=== PATIENT | female | born 1985 | race Hispanic/Latino ===

== ENCOUNTER 2016-05-31 21:04 | Emergency (ER) | payer MEDICAID ==
[2016-05-31 22:45] LABS: Bilirubin,Urine NEG (Negative); Blood,Urine NEG (Negative); Ketones,Urine NEG (Negative); Leukocyte Esterase,Urine NEG (Negative); Mucus,Urine FEW /HPF; Nitrite,Urine NEG (Negative); Protein,Urine <15 mg/dL mg/dL (Negative); Urobilinogen,Urine < 2.0 mg/dL (<2.0); WBC,Urine < 1.0 /HPF (0.0-6.0)
[2016-05-31 23:04] LABS: Basophils % (Auto) 0.7 % (0.0-1.8); Hematocrit 41.8 % (30.3-42.9); Hemoglobin 13.6 gm/dl (10.1-14.3); Mean Corpuscular HGB Conc 33 % (30-34); Mean Corpuscular Hemoglobin 31 pg (28-32); Mean Corpuscular Volume 94 fl (79-97); Platelet Count 226 K/mm3 (140-440); Red Blood Count 4.45 M/mm3 (3.65-5.03); Red Cell Distribution Width 13.7 % (13.2-15.2)
[2016-05-31 23:11] LABS: Alanine Aminotransferase 17 units/L (7-56); Albumin 4.4 g/dL (3.9-5); Albumin/Globulin Ratio 1.9 %; Alkaline Phosphatase 55 units/L (35-129); Anion Gap 17 mmol/L; BUN/Creatinine Ratio 18.33; Bilirubin,Total 0.3 mg/dL (0.1-1.2); Blood Urea Nitrogen 11 mg/dL (7-17); Carbon Dioxide 24 mmol/L (22-30); Chloride 104.1 mmol/L (98-107); Glucose 123 mg/dL (65-100); Lipase 31 units/L (13-60); Potassium 3.6 mmol/L (3.6-5.0); Sodium 141 mmol/L (137-145); Total Protein 6.7 g/dL (6.3-8.2)
--- NOTE | 2016-06-01 05:31 | Emergency Department Report ---
ED Abdominal Pain HPI - General Chief Complaint: Abdominal Pain Stated Complaint: ABDOMINAL PAIN Time Seen by Provider: 06/01/16 05:25 Source: patient Mode of arrival: Ambulatory Limitations: No Limitations - History of Present Illness Initial Comments: Patient is a 22-year-old female with no past medical history presented to the ER with nausea and abdominal pain. Patient reports she is currently on penicillin and hydrocodone status post tooth extractions last week. Patient reports that she may be having adverse reaction to the hydrocodone because she' s had a penicillin before in the past. Otherwise no fevers, chills, vomiting, diarrhea, chest pain, shortness of breath, trauma, sick contacts, or travel MD Complaint: abdominal pain Location: diffuse Severity scale (0 -10): 7 - Related Data Previous Rx's Medication Instructions Recorded Last Taken Type Acetaminophen/Codeine [Tylenol #3] 1 tab PO TID PRN #14 tab 06/15/14 Unknown Rx metroNIDAZOLE [Flagyl] 500 mg PO BID #10 tablet 06/15/14 Unknown Rx Acetaminophen/Codeine [Tylenol #3] 1 tab PO Q6H PRN #15 tab 01/26/15 Unknown Rx Albuterol Sulfate [Ventolin HFA] 2 puff IH Q4H PRN #1 hfa.aer.ad 01/26/15 Unknown Rx Penicillin Vk [Veetids TAB] 500 mg PO QID #40 tablet 01/26/15 Unknown Rx Allergies Allergy/AdvReac Type Severity Reaction Status Date / Time No Known Allergies Allergy Verified 06/15/14 16:40 ED Review of Systems ROS: Stated complaint: ABDOMINAL PAIN Other details as noted in HPI Comment: All other systems reviewed and negative ED Past Medical Hx - Past Medical History Previous Medical History?: No Hx Asthma: Yes Additional medical history: History of herpes, previous bacterial vaginosis, previous gonorrhea, & Chlamydia - Surgical History Additional Surgical History: tubal ligation - Social History Smoking Status: Current Every Day Smoker Substance Use Type: None - Medications Home Medications: Home Medications Medication Instructions Recorded Confirmed Last Taken Type Acetaminophen/Codeine [Tylenol #3] 1 tab PO TID PRN #14 tab 06/15/14 Unknown Rx metroNIDAZOLE [Flagyl] 500 mg PO BID #10 tablet 06/15/14 Unknown Rx Acetaminophen/Codeine [Tylenol #3] 1 tab PO Q6H PRN #15 tab 01/26/15 Unknown Rx Albuterol Sulfate [Ventolin HFA] 2 puff IH Q4H PRN #1 hfa.aer.ad 01/26/15 Unknown Rx Penicillin Vk [Veetids TAB] 500 mg PO QID #40 tablet 01/26/15 Unknown Rx ED Physical Exam - General Limitations: No Limitations General appearance: alert, in no apparent distress - Head Head exam: Present: atraumatic, normocephalic - Eye Eye exam: Present: normal appearance - ENT ENT exam: Present: mucous membranes moist - Neck Neck exam: Present: normal inspection - Respiratory Respiratory exam: Present: normal lung sounds bilaterally. Absent: respiratory distress - Cardiovascular Cardiovascular Exam: Present: regular rate, normal rhythm. Absent: systolic murmur, diastolic murmur, rubs, gallop - GI/Abdominal GI/Abdominal exam: Present: soft, normal bowel sounds - Extremities Exam Extremities exam: Present: normal inspection - Back Exam Back exam: Present: normal inspection - Neurological Exam Neurological exam: Present: alert, oriented X3 - Psychiatric Psychiatric exam: Present: normal affect, normal mood - Skin Skin exam: Present: warm, dry, intact, normal color. Absent: rash ED Course Vital Signs 05/31/16 06/01/16 22:00 04:33 Temperature 98.8 F 98.4 F Pulse Rate 57 L 62 Respiratory 18 18 Rate Blood Pressure 125/72 115/84 O2 Sat by Pulse 100 97 Oximetry ED Medical Decision Making - Lab Data Result diagrams: 05/31/16 22:41 05/31/16 22:41 - Medical Decision Making Discussed with patient at bedside. I instructed the patient to discontinue the hydrocodone and to continue the penicillin given the fact that she's had penicillin in the past. Instructed the patient to take Tylenol or Motrin for pain control. If she continues to have the same abdominal pain aftercare to call her dentist regarding her prescription. Patient understood Critical care attestation.: If time is entered above; I have spent that time in minutes in the direct care of this critically ill patient, excluding procedure time. ED Disposition Clinical Impression: Abdominal pain, Nausea, Adverse drug effect Disposition: DISCHARGED TO HOME OR SELFCARE Is pt being admited?: No Condition: Stable Instructions: Abdominal Pain (ED), Acute Nausea and Vomiting (ED), Adverse Drug Reaction (ED) Additional Instructions: stop the hydrocodone Referrals: PRIMARY CARE, [Primary Care Provider] - 3-5 Days
[2016-06-01 06:26] VITALS: BP 122/68
== END 2016-06-01 06:27 | disposition home or self-care (01) ==
LOC: ED 21:04
DX: R10.84 Generalized abdominal pain (principal); R11.0 Nausea; T50.905A Adverse effect of unspecified drugs, medicaments and biological substances, initial encounter; J45.909 Unspecified asthma, uncomplicated; F17.200 Nicotine dependence, unspecified, uncomplicated; Y92.89 Other specified places as the place of occurrence of the external cause
CPT/HCPCS: 36415; 80053; 81001; 81025; 83690; 85025

== ENCOUNTER 2016-09-27 08:30 | Emergency (ER) | payer MEDICAID ==
[2016-09-27 08:38] VITALS: BP 107/82
[2016-09-27 09:13] LABS: Basophils % (Auto) 1.8 % (0.0-1.8); Eosinophils % (Auto) 0.7 % (0.0-4.3); Hematocrit 44.6 % (30.3-42.9); Hemoglobin 14.4 gm/dl (10.1-14.3); Mean Corpuscular HGB Conc 32 % (30-34); Mean Corpuscular Hemoglobin 30 pg (28-32); Mean Corpuscular Volume 94 fl (79-97); Platelet Count 257 K/mm3 (140-440); Red Blood Count 4.76 M/mm3 (3.65-5.03); Red Cell Distribution Width 13.4 % (13.2-15.2); White Blood Count 12.7 K/mm3 (4.5-11.0)
[2016-09-27 09:21] LABS: Alanine Aminotransferase 13 units/L (7-56); Albumin 4.4 g/dL (3.9-5); Albumin/Globulin Ratio 1.5 %; Alkaline Phosphatase 50 units/L (35-129); Chloride 104.9 mmol/L (98-107); Glucose 107 mg/dL (65-100); Sodium 141 mmol/L (137-145); Total Protein 7.4 g/dL (6.3-8.2)
[2016-09-27 09:50] LABS: Anion Gap 18 mmol/L; BUN/Creatinine Ratio 16.66; Blood Urea Nitrogen 10 mg/dL (7-17); Calcium 8.8 mg/dL (8.4-10.2); Carbon Dioxide 22 mmol/L (22-30)
[2016-09-27 10:41] LABS: Bacteria,Urine 1+ /HPF (Negative); Bilirubin,Urine NEG (Negative); Blood,Urine LG (Negative); Ketones,Urine NEG (Negative); Leukocyte Esterase,Urine TR (Negative); Mucus,Urine 2+ /HPF; Nitrite,Urine NEG (Negative)
[2016-09-27] MEDS ORDERED: MOTRIN PO ONE (10:42)
--- NOTE | 2016-09-27 10:42 | Emergency Department Report ---
ED General Adult HPI - General Chief complaint: Vaginal Bleeding Stated complaint: PREG/BLEEDING Time Seen by Provider: 09/27/16 10:36 Source: patient Mode of arrival: Ambulatory Limitations: No Limitations - History of Present Illness Initial comments: PT states lmp was first week in August. PT states she woke up today with cramps and bleeding. PT states she took a home test on Tuesday and it was positive PT reports having tubal ligation g3 p 3 Complaint: vaginal bleeding -: Gradual, During the night Location: abdomen Severity scale (0 -10): 8 Quality: constant Consistency: constant Improves with: none Worsens with: none Associated Symptoms: cough (x 2 days, productive ). denies: fever/chills, loss of appetite, nausea/vomiting - Related Data Previous Rx's Medication Instructions Recorded Last Taken Type Albuterol Sulfate [Ventolin HFA] 2 puff IH Q4H PRN #1 hfa.aer.ad 09/27/16 Unknown Rx Benzonatate [Tessalon Perles] 100 mg PO Q8HR PRN #12 capsule 09/27/16 Unknown Rx Guaifenesin/Pseudoephedrne HCl 1 each PO BID PRN #10 tab.er.12h 09/27/16 Unknown Rx [Mucinex D ER 1,200-120 mg Tab] Ibuprofen [Motrin] 600 mg PO Q8H PRN #15 tablet 09/27/16 Unknown Rx traMADol [Ultram] 50 mg PO Q6HR PRN #10 tablet 09/27/16 Unknown Rx Allergies Allergy/AdvReac Type Severity Reaction Status Date / Time No Known Allergies Allergy Verified 06/15/14 16:40 ED Review of Systems ROS: Stated complaint: PREG/BLEEDING Other details as noted in HPI Comment: All other systems reviewed and negative Constitutional: denies: fever, malaise ENT: ear pain, throat pain Respiratory: cough Gastrointestinal: abdominal pain. denies: nausea, vomiting Genitourinary: abnormal menses (lmp -17 - first week of August, late ). denies: dysuria, discharge ED Past Medical Hx - Past Medical History Hx Asthma: Yes Additional medical history: History of herpes, previous bacterial vaginosis, previous gonorrhea, & Chlamydia - Surgical History Additional Surgical History: tubal ligation - Family History Family history: asthma ([employer] D) - Social History Smoking Status: Never Smoker Substance Use Type: None - Medications Home Medications: Home Medications Medication Instructions Recorded Confirmed Last Taken Type Albuterol Sulfate [Ventolin HFA] 2 puff IH Q4H PRN #1 hfa.aer.ad 09/27/16 Unknown Rx Benzonatate [Tessalon Perles] 100 mg PO Q8HR PRN #12 capsule 09/27/16 Unknown Rx Guaifenesin/Pseudoephedrne HCl 1 each PO BID PRN #10 tab.er.12h 09/27/16 Unknown Rx [Mucinex D ER 1,200-120 mg Tab] Ibuprofen [Motrin] 600 mg PO Q8H PRN #15 tablet 09/27/16 Unknown Rx traMADol [Ultram] 50 mg PO Q6HR PRN #10 tablet 09/27/16 Unknown Rx ED Physical Exam - General Limitations: No Limitations General appearance: alert, in no apparent distress - Head Head exam: Present: atraumatic, normocephalic, normal inspection - Eye Eye exam: Present: normal appearance, PERRL, EOMI. Absent: conjunctival injection Pupils: Present: normal accommodation - ENT ENT exam: Present: normal orophraynx, mucous membranes moist, normal external ear exam. Absent: TM's normal bilaterally (scar tissue to ernestine TMs. PT reports hx of PETs as child ) - Neck Neck exam: Present: normal inspection, full ROM. Absent: tenderness, lymphadenopathy - Respiratory Respiratory exam: Present: normal lung sounds bilaterally. Absent: respiratory distress, wheezes, rales, rhonchi, stridor, chest wall tenderness, accessory muscle use - Cardiovascular Cardiovascular Exam: Present: regular rate, normal rhythm, normal heart sounds - GI/Abdominal GI/Abdominal exam: Present: soft, tenderness (mild suprapubic tenderness to deep palpation ), normal bowel sounds. Absent: guarding, rebound - Rectal Rectal exam: Present: deferred - Extremities Exam Extremities exam: Present: normal inspection, full ROM, normal capillary refill - Back Exam Back exam: Present: normal inspection, full ROM. Absent: tenderness, CVA tenderness (R), CVA tenderness (L), muscle spasm, paraspinal tenderness, vertebral tenderness - Neurological Exam Neurological exam: Present: alert, oriented X3, normal gait - Psychiatric Psychiatric exam: Present: normal affect, normal mood - Skin Skin exam: Present: warm, dry, intact, normal color ED Course Vital Signs 09/27/16 09/27/16 08:34 10:53 Temperature 98.6 F Pulse Rate 65 Respiratory 18 16 Rate Blood Pressure 107/82 O2 Sat by Pulse 100 Oximetry - Reevaluation(s) Reevaluation #1: 09/27/16 10:44 PT aware of blood results. pt aware ua pending and chest xr ordered for her complaint of productive cough. Reevaluation #2: 09/27/16 11:40 PT aware of CXR result and UA results. PT denies concern for STD. PT states she only has one partner. PT states she started coughing after she smelled freshly pained loera. Reevaluation #3: 09/27/16 11:43 pt reports decrease from cramps sp motrin - Pulse Oximetry Interpretation Digit-Finger Initial Pulse Oximetry Readin Actions Taken: none ED Medical Decision Making - Lab Data Result diagrams: 09/27/16 08:43 09/27/16 08:43 Lab Results 09/27/16 09/27/16 09/27/16 Range/Units 08:43 08:43 08:43 WBC 12.7 H (4.5-11.0) K/mm3 RBC 4.76 (3.65-5.03) M/mm3 Hgb 14.4 H (10.1-14.3) gm/dl Hct 44.6 H (30.3-42.9) % MCV 94 (79-97) fl MCH 30 (28-32) pg MCHC 32 (30-34) % RDW 13.4 (13.2-15.2) % Plt Count 257 (140-440) K/mm3 Lymph % (Auto) 5.9 L (13.4-35.0) % [place] % (Auto) 3.4 (0.0-7.3) % Eos % (Auto) 0.7 (0.0-4.3) % Baso % (Auto) 1.8 (0.0-1.8) % Lymph # 0.8 L (1.2-5.4) K/mm3 [place] # 0.4 (0.0-0.8) K/mm3 Eos # 0.1 (0.0-0.4) K/mm3 Baso # 0.2 H (0.0-0.1) K/mm3 Seg Neutrophils % 88.2 H (40.0-70.0) % Seg Neutrophils # 11.2 H (1.8-7.7) K/mm3 Sodium 141 (137-145) mmol/L Potassium 4.0 (3.6-5.0) mmol/L Chloride 104.9 (98-107) mmol/L Carbon Dioxide 22 (22-30) mmol/L Anion Gap 18 mmol/L BUN 10 (7-17) mg/dL Creatinine 0.6 L (0.7-1.2) mg/dL Estimated GFR > 60 ml/min BUN/Creatinine Ratio 16.66 % Glucose 107 H (65-100) mg/dL Calcium 8.8 (8.4-10.2) mg/dL Total Bilirubin 0.90 (0.1-1.2) mg/dL AST 13 (5-40) units/L ALT 13 (7-56) units/L Alkaline Phosphatase 50 (35-129) units/L Total Protein 7.4 (6.3-8.2) g/dL Albumin 4.4 (3.9-5) g/dL Albumin/Globulin Ratio 1.5 % HCG, Qual Negative (Negative) HCG, Quant (0-4) mIU/mL Urine Color (Yellow) Urine Turbidity (Clear) Urine pH (5.0-7.0) Ur Specific [place] (1.003-1.030) Urine Protein (Negative) mg/dL Urine Glucose (UA) (Negative) mg/dL Urine Ketones (Negative) mg/dL Urine Blood (Negative) Urine Nitrite (Negative) Urine Bilirubin (Negative) Urine Urobilinogen (<2.0) mg/dL Ur Leukocyte Esterase (Negative) Urine WBC (Auto) (0.0-6.0) /HPF Urine RBC (Auto) (0.0-6.0) /HPF U Epithel Cells (Auto) (0-13.0) /HPF Urine Bacteria (Auto) (Negative) /HPF Urine Mucus /HPF 09/27/16 09/27/16 Range/Units 08:43 09:53 WBC (4.5-11.0) K/mm3 RBC (3.65-5.03) M/mm3 Hgb (10.1-14.3) gm/dl Hct (30.3-42.9) % MCV (79-97) fl MCH (28-32) pg MCHC (30-34) % RDW (13.2-15.2) % Plt Count (140-440) K/mm3 Lymph % (Auto) (13.4-35.0) % [place] % (Auto) (0.0-7.3) % Eos % (Auto) (0.0-4.3) % Baso % (Auto) (0.0-1.8) % Lymph # (1.2-5.4) K/mm3 [place] # (0.0-0.8) K/mm3 Eos # (0.0-0.4) K/mm3 Baso # (0.0-0.1) K/mm3 Seg Neutrophils % (40.0-70.0) % Seg Neutrophils # (1.8-7.7) K/mm3 Sodium (137-145) mmol/L Potassium (3.6-5.0) mmol/L Chloride (98-107) mmol/L Carbon Dioxide (22-30) mmol/L Anion Gap mmol/L BUN (7-17) mg/dL Creatinine (0.7-1.2) mg/dL Estimated GFR ml/min BUN/Creatinine Ratio % Glucose (65-100) mg/dL Calcium (8.4-10.2) mg/dL Total Bilirubin (0.1-1.2) mg/dL AST (5-40) units/L ALT (7-56) units/L Alkaline Phosphatase (35-129) units/L Total Protein (6.3-8.2) g/dL Albumin (3.9-5) g/dL Albumin/Globulin Ratio % HCG, Qual (Negative) HCG, Quant < 2 (0-4) mIU/mL Urine Color Yellow (Yellow) Urine Turbidity Clear (Clear) Urine pH 6.0 (5.0-7.0) Ur Specific [place] 1.026 (1.003-1.030) Urine Protein 30 mg/dl (Negative) mg/dL Urine Glucose (UA) Neg (Negative) mg/dL Urine Ketones Neg (Negative) mg/dL Urine Blood Lg (Negative) Urine Nitrite Neg (Negative) Urine Bilirubin Neg (Negative) Urine Urobilinogen 4.0 (<2.0) mg/dL Ur Leukocyte Esterase Tr (Negative) Urine WBC (Auto) 12.0 H (0.0-6.0) /HPF Urine RBC (Auto) 35.0 (0.0-6.0) /HPF U Epithel Cells (Auto) 19.0 H (0-13.0) /HPF Urine Bacteria (Auto) 1+ (Negative) /HPF Urine Mucus 2+ /HPF ua contaminated, cultures ordered - Radiology Data Radiology results: report reviewed - Differential Diagnosis uti, , ectopic, bronchitis, pna Critical Care Time: No Critical care attestation.: If time is entered above; I have spent that time in minutes in the direct care of this critically ill patient, excluding procedure time. 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 Return to the ED if you are having Shortness of breath, heavy vaginal bleeding ( soaking a pad an hour) or concerns Prescriptions: Albuterol Sulfate [Ventolin HFA] 2 puff IH Q4H PRN #1 hfa.aer.ad PRN Reason: Shortness Of Breath Benzonatate [Tessalon Perles] 100 mg PO Q8HR PRN #12 capsule PRN Reason: Cough Guaifenesin/Pseudoephedrne HCl [Mucinex D ER 1,200-120 mg Tab] 1 each PO BID PRN #10 tab.er.12h PRN Reason: Congestion Ibuprofen [Motrin] 600 mg PO Q8H PRN #15 tablet PRN Reason: Pain traMADol [Ultram] 50 mg PO Q6HR PRN #10 tablet PRN Reason: Pain Referrals: PRIMARY CAREMD [Primary Care Provider] - 3-5 Days MARY ANN WHEELER MD [Staff Physician] - 3-5 Days [facility] [Provider Group] - 3-5 Days [facility] [Outside] - 3-5 Days [facility] [Outside] - 3-5 Days Forms: Work/School Release Form(ED) Time of Disposition: 11:43
--- NOTE | 2016-09-27 11:16 | XRay Report ---
CHEST 2 VIEWS INDICATION: Cough. COMPARISON: 02/11/2011. FINDINGS: PA and lateral chest radiographs demonstrate normal cardiomediastinal silhouette. Clear lungs. Intact bones. CONCLUSION: No acute disease in the chest. Thank you for the opportunity to participate in this patient's care.
== END 2016-09-27 11:57 | disposition home or self-care (01) ==
LOC: ED 08:30
DX: N92.5 Other specified irregular menstruation (principal); J06.9 Acute upper respiratory infection, unspecified; R05 Cough; J45.909 Unspecified asthma, uncomplicated
CPT/HCPCS: 36415; 71020; 80053; 81001; 84702; 84703; 85025; 87086

== ENCOUNTER 2017-10-07 10:09 | Emergency (ER) | payer SELFPAY ==
--- NOTE | 2017-10-07 11:58 | Emergency Department Report ---
- General Chief Complaint: Upper Respiratory Infection Stated Complaint: COUGHING/CONGESTION Time Seen by Provider: 10/07/17 11:12 Source: patient Mode of arrival: Ambulatory Limitations: No Limitations - History of Present Illness Initial Comments: 32-year-old female with a past medical history of asthma presents to the hospital with complaints of cough and cold symptoms for the past 4 days. Cough productive of yellow, green, and occasionally blood-tinged sputum. Nasal congestion reported as well as sore throat and body aches. Patient states her daughter was sick with similar symptoms. Patient has a history of asthma has been wheezing more frequently and use the rest of her daughter's inhaler. Reports a fever of 100.2 by symptom onset. Patient using [id number] medication without improvement. - Related Data Previous Rx's Medication Instructions Recorded Last Taken Type Albuterol Sulfate [Ventolin HFA] 2 puff IH Q4H PRN #1 hfa.aer.ad 10/07/17 Unknown Rx Azithromycin [Zithromax Z-PRINCESS] 1 dose PO DAILY 5 Days tab 10/07/17 Unknown Rx Benzonatate [Tessalon Perles] 100 mg PO Q8HR PRN #30 capsule 10/07/17 Unknown Rx Guaifenesin/Pseudoephedrne HCl 1 each PO BID PRN #20 tab.er.12h 10/07/17 Unknown Rx [Mucinex D ER 1,200-120 mg Tab] Ibuprofen [Motrin 600 MG tab] 600 mg PO Q8H PRN #30 tablet 10/07/17 Unknown Rx predniSONE [Deltasone] 40 mg PO QDAY 5 Days tab 10/07/17 Unknown Rx traMADol [Ultram 50 MG tab] 50 mg PO Q6HR PRN #20 tablet 10/07/17 Unknown Rx Allergies Allergy/AdvReac Type Severity Reaction Status Date / Time No Known Allergies Allergy Verified 10/07/17 10:20 ED Review of Systems ROS: Stated complaint: COUGHING/CONGESTION Other details as noted in HPI Comment: All other systems reviewed and negative ED Past Medical Hx - Past Medical History Previous Medical History?: Yes Hx Asthma: Yes Additional medical history: History of herpes, previous bacterial vaginosis, previous gonorrhea, & Chlamydia - Surgical History Past Surgical History?: Yes Additional Surgical History: tubal ligation - Social History Smoking Status: Current Every Day Smoker Substance Use Type: Marijuana - Medications Home Medications: Home Medications Medication Instructions Recorded Confirmed Last Taken Type Albuterol Sulfate [Ventolin HFA] 2 puff IH Q4H PRN #1 hfa.aer.ad 10/07/17 Unknown Rx Azithromycin [Zithromax Z-PRINCESS] 1 dose PO DAILY 5 Days tab 10/07/17 Unknown Rx Benzonatate [Tessalon Perles] 100 mg PO Q8HR PRN #30 capsule 10/07/17 Unknown Rx Guaifenesin/Pseudoephedrne HCl 1 each PO BID PRN #20 tab.er.12h 10/07/17 Unknown Rx [Mucinex D ER 1,200-120 mg Tab] Ibuprofen [Motrin 600 MG tab] 600 mg PO Q8H PRN #30 tablet 10/07/17 Unknown Rx predniSONE [Deltasone] 40 mg PO QDAY 5 Days tab 10/07/17 Unknown Rx traMADol [Ultram 50 MG tab] 50 mg PO Q6HR PRN #20 tablet 10/07/17 Unknown Rx ED Physical Exam - General Limitations: No Limitations - Other Other exam information: General: No limitations, patient is alert in no acute distress Head exam: Atraumatic, normocephalic Eyes exam: Normal appearance ENT: Moist mucous membrane, normal oropharynx no pharyngeal x-rays. Mild tender left cervical lymph node Neck exam: Normal inspection, full range of motion, no meningismus nontender. Nasal congestion Respiratory exam: Clear to auscultation bilateral, no wheezes, rales, crackles Cardiovascular: Normal rate and rhythm, normal heart sounds Abdomen: Soft, nondistended, and nontender, with normal bowel sounds, no rebound, or guarding Extremity: Full range of motion normal inspection no deformity Back: Normal Inspection, full range of motion, no tenderness Neurologic: Alert, oriented x3, cranial nerves intact, no motor or sensory deficit Psychiatric: normal affect, normal mood Skin: Warm, dry, intact ED Course Vital Signs 10/07/17 10:18 Temperature 97.8 F Pulse Rate 96 H Respiratory 18 Rate Blood Pressure 113/72 O2 Sat by Pulse 98 Oximetry ED Medical Decision Making - Medical Decision Making Patient presented to her respiratory symptoms. Lungs clear at this time. Vital signs unremarkable. Will be treated with Z-Princess and additional medications for symptomatic relief. Outpatient follow-up will be encouraged - Differential Diagnosis bronchitis, viral syndrome, pneumonia, URI Critical Care Time: No Critical care attestation.: If time is entered above; I have spent that time in minutes in the direct care of this critically ill patient, excluding procedure time. ED Disposition Clinical Impression: Viral syndrome, Acute bronchitis Disposition: - TO HOME OR SELFCARE Is pt being admited?: No Does the pt Need Aspirin: No Condition: Stable Instructions: Acute Bronchitis (ED), Viral Syndrome (ED) Additional Instructions: Take the medication as prescribed. Follow up with your doctor or the doctors provided. Return if symptoms worsen as indicated by your discharge instructions. Prescriptions: Albuterol Sulfate [Ventolin HFA] 2 puff IH Q4H PRN #1 hfa.aer.ad PRN Reason: Shortness Of Breath Azithromycin [Zithromax Z-PRINCESS] 1 dose PO DAILY 5 Days tab Benzonatate [Tessalon Perles] 100 mg PO Q8HR PRN #30 capsule PRN Reason: Cough Guaifenesin/Pseudoephedrne HCl [Mucinex D ER 1,200-120 mg Tab] 1 each PO BID PRN #20 tab.er.12h PRN Reason: Congestion Ibuprofen [Motrin 600 MG tab] 600 mg PO Q8H PRN #30 tablet PRN Reason: Pain predniSONE [Deltasone] 40 mg PO QDAY 5 Days tab traMADol [Ultram 50 MG tab] 50 mg PO Q6HR PRN #20 tablet PRN Reason: Pain Referrals: MARTINA SORENSON MD [Primary Care Provider] - 3-5 Days [facility] [Provider Group] - 3-5 Days (Primary care clinic) SHYLA REESE MD [Staff Physician] - 3-5 Days (Primary care doctor) Time of Disposition: 11:58
[2017-10-07 12:12] VITALS: BP 122/62
== END 2017-10-07 12:09 | disposition home or self-care (01) ==
LOC: ED 10:09
DX: J20.9 Acute bronchitis, unspecified (principal); B34.9 Viral infection, unspecified; F17.200 Nicotine dependence, unspecified, uncomplicated; J45.909 Unspecified asthma, uncomplicated; F12.10 Cannabis abuse, uncomplicated; Z98.51 Tubal ligation status
CPT/HCPCS: 99282

== ENCOUNTER 2018-08-02 20:17 | Emergency (ER) | payer OTHER ==
--- NOTE | 2018-08-02 20:36 | Emergency Department Report ---
Blank Doc - Documentation Documentation: This is a 32-year-old female that presents with cough and left sided abdominal pain. Denies any n/v. This initial assessment/diagnostic orders/clinical plan/treatment(s) is/are subject to change based on patient's health status, clinical progression and re- assessment by fellow clinical providers in the ED. Further treatment and workup at subsequent clinical providers discretion. Patient/guardians urged not to elope from the ED as their condition may be serious if not clinically assessed and managed. Initial orders include: 1- Patient sent to [facility] for further evaluation and treatment 2- CXR 3- labs 4- UA
[2018-08-02 21:02] LABS: Bilirubin,Urine NEG (Negative); Blood,Urine SM (Negative); Color,Urine Yellow (Yellow); Protein,Urine <15 mg/dL mg/dL (Negative); Urobilinogen,Urine < 2.0 mg/dL (<2.0)
[2018-08-02 21:05] LABS: Basophils % (Auto) 0.6 % (0.0-1.8); Eosinophils # (Auto) 0.1 K/mm3 (0.0-0.4); Eosinophils % (Auto) 1.6 % (0.0-4.3); Hemoglobin 14.8 gm/dl (10.1-14.3); Lymphocytes # (Auto) 2.4 K/mm3 (1.2-5.4); Lymphocytes % (Auto) 34.1 % (13.4-35.0); Mean Corpuscular HGB Conc 34 % (30-34); Mean Corpuscular Volume 95 fl (79-97); Monocytes # (Auto) 0.3 K/mm3 (0.0-0.8); Monocytes % (Auto) 4.4 % (0.0-7.3); Platelet Count 283 K/mm3 (140-440); Red Blood Count 4.63 M/mm3 (3.65-5.03); Red Cell Distribution Width 13.5 % (13.2-15.2)
[2018-08-02 21:30] LABS: Alanine Aminotransferase 20 units/L (7-56); Albumin 4.4 g/dL (3.9-5); BUN/Creatinine Ratio 22; Blood Urea Nitrogen 13 mg/dL (7-17); Calcium 8.8 mg/dL (8.4-10.2); Hemolysis Index 9
--- NOTE | 2018-08-02 22:06 | XRay Report ---
PROCEDURE: XR CHEST ROUTINE 2V TECHNIQUE: PA and lateral chest radiographs were obtained. HISTORY: cough COMPARISONS: None. FINDINGS: Heart: Normal. Mediastinum/Vessels: Normal. Lungs/Pleural space: Normal. Bony thorax: No acute osseous abnormality. IMPRESSION: Normal examination. This document is electronically signed by Nahun Epps MD., August 02 2018 10:05:01 PM ET
[2018-08-02 23:58] VITALS: BP 98/59
--- NOTE | 2018-08-03 00:18 | Emergency Department Report ---
ED Abdominal Pain HPI - General Chief Complaint: Abdominal Pain Stated Complaint: COUGH,LEFT SIDE PAIN Time Seen by Provider: 08/02/18 20:35 Source: patient Mode of arrival: Ambulatory Limitations: No Limitations - History of Present Illness Initial Comments: Pt is a 32 yo female who presents to the ED with c/o left upper abd pain that began 2-3 days ago. She describes it as a cramping. She denies any N/V/D, urinary sx, fever. she states she had a BM this morning. she denies having previously. PMHx of asthma. no allergies to meds. - Related Data Previous Rx's Medication Instructions Recorded Last Taken Type Albuterol Sulfate [Ventolin HFA] 2 puff IH Q4H PRN #1 hfa.aer.ad 10/07/17 Unknown Rx Azithromycin [Zithromax Z-PRINCESS] 1 dose PO DAILY 5 Days tab 10/07/17 Unknown Rx Benzonatate [Tessalon Perles] 100 mg PO Q8HR PRN #30 capsule 10/07/17 Unknown Rx Guaifenesin/Pseudoephedrne HCl 1 each PO BID PRN #20 tab.er.12h 10/07/17 Unknown Rx [Mucinex D ER 1,200-120 mg Tab] Ibuprofen [Motrin 600 MG tab] 600 mg PO Q8H PRN #30 tablet 10/07/17 Unknown Rx predniSONE [Deltasone] 40 mg PO QDAY 5 Days tab 10/07/17 Unknown Rx Dicyclomine [Bentyl] 10 mg PO QID PRN #14 capsule 08/03/18 Unknown Rx Famotidine [Pepcid] 20 mg PO BID #60 tablet 08/03/18 Unknown Rx Simethicone [Gas-X] 62.5 mg PO DAILY #1 strip 08/03/18 Unknown Rx Allergies Allergy/AdvReac Type Severity Reaction Status Date / Time No Known Allergies Allergy Verified 10/07/17 10:20 ED Review of Systems ROS: Stated complaint: COUGH,LEFT SIDE PAIN Other details as noted in HPI Comment: All other systems reviewed and negative ED Past Medical Hx - Past Medical History Previous Medical History?: Yes Hx Asthma: Yes Additional medical history: History of herpes, previous bacterial vaginosis, previous gonorrhea, & Chlamydia - Surgical History Past Surgical History?: Yes Additional Surgical History: tubal ligation - Social History Smoking Status: Current Every Day Smoker Substance Use Type: Marijuana - Medications Home Medications: Home Medications Medication Instructions Recorded Confirmed Last Taken Type Albuterol Sulfate [Ventolin HFA] 2 puff IH Q4H PRN #1 hfa.aer.ad 10/07/17 Unknown Rx Azithromycin [Zithromax Z-PRINCESS] 1 dose PO DAILY 5 Days tab 10/07/17 Unknown Rx Benzonatate [Tessalon Perles] 100 mg PO Q8HR PRN #30 capsule 10/07/17 Unknown Rx Guaifenesin/Pseudoephedrne HCl 1 each PO BID PRN #20 tab.er.12h 10/07/17 Unknown Rx [Mucinex D ER 1,200-120 mg Tab] Ibuprofen [Motrin 600 MG tab] 600 mg PO Q8H PRN #30 tablet 10/07/17 Unknown Rx predniSONE [Deltasone] 40 mg PO QDAY 5 Days tab 10/07/17 Unknown Rx Dicyclomine [Bentyl] 10 mg PO QID PRN #14 capsule 08/03/18 Unknown Rx Famotidine [Pepcid] 20 mg PO BID #60 tablet 08/03/18 Unknown Rx Simethicone [Gas-X] 62.5 mg PO DAILY #1 strip 08/03/18 Unknown Rx ED Physical Exam - General Limitations: No Limitations General appearance: alert, in no apparent distress - Head Head exam: Present: atraumatic, normocephalic - Eye Eye exam: Present: normal appearance, PERRL - ENT ENT exam: Present: mucous membranes moist - Respiratory Respiratory exam: Present: normal lung sounds bilaterally. Absent: respiratory distress, wheezes, rales, rhonchi, stridor, chest wall tenderness, accessory muscle use, decreased breath sounds, prolonged expiratory - Cardiovascular Cardiovascular Exam: Present: regular rate, normal rhythm, normal heart sounds. Absent: systolic murmur, diastolic murmur, rubs, gallop - GI/Abdominal GI/Abdominal exam: Present: soft, tenderness (mild left upper quadrant, no tenderness of any other quadrants ), normal bowel sounds. Absent: distended, guarding, rebound, rigid - Back Exam Back exam: Absent: CVA tenderness (R), CVA tenderness (L) - Neurological Exam Neurological exam: Present: alert, oriented X3 - Psychiatric Psychiatric exam: Present: normal affect, normal mood - Skin Skin exam: Present: warm, dry, intact ED Course Vital Signs 08/02/18 08/02/18 20:33 23:55 Temperature 98.7 F 98.9 F Pulse Rate 85 70 Respiratory 16 18 Rate Blood Pressure 114/74 Blood Pressure 98/59 [Right] O2 Sat by Pulse 97 100 Oximetry ED Medical Decision Making - Lab Data Result diagrams: 08/02/18 20:43 08/02/18 20:43 Lab Results 08/02/18 08/02/18 08/02/18 Range/Units 20:43 20:43 20:43 WBC 7.1 (4.5-11.0) K/mm3 RBC 4.63 (3.65-5.03) M/mm3 Hgb 14.8 H (10.1-14.3) gm/dl Hct 44.0 H (30.3-42.9) % MCV 95 (79-97) fl MCH 32 (28-32) pg MCHC 34 (30-34) % RDW 13.5 (13.2-15.2) % Plt Count 283 (140-440) K/mm3 Lymph % (Auto) 34.1 (13.4-35.0) % [place] % (Auto) 4.4 (0.0-7.3) % Eos % (Auto) 1.6 (0.0-4.3) % Baso % (Auto) 0.6 (0.0-1.8) % Lymph # 2.4 (1.2-5.4) K/mm3 [place] # 0.3 (0.0-0.8) K/mm3 Eos # 0.1 (0.0-0.4) K/mm3 Baso # 0.0 (0.0-0.1) K/mm3 Seg Neutrophils % 59.3 (40.0-70.0) % Seg Neutrophils # 4.2 (1.8-7.7) K/mm3 Sodium 140 (137-145) mmol/L Potassium 4.0 (3.6-5.0) mmol/L Chloride 101.7 (98-107) mmol/L Carbon Dioxide 25 (22-30) mmol/L Anion Gap 17 mmol/L BUN 13 (7-17) mg/dL Creatinine 0.6 L (0.7-1.2) mg/dL Estimated GFR > 60 ml/min BUN/Creatinine Ratio 22 % Glucose 102 H (65-100) mg/dL Calcium 8.8 (8.4-10.2) mg/dL Total Bilirubin 0.20 (0.1-1.2) mg/dL AST 17 (5-40) units/L ALT 20 (7-56) units/L Alkaline Phosphatase 60 (35-129) units/L Total Protein 7.3 (6.3-8.2) g/dL Albumin 4.4 (3.9-5) g/dL Albumin/Globulin Ratio 1.5 % HCG, Qual Negative (Negative) Urine Color (Yellow) Urine Turbidity (Clear) Urine pH (5.0-7.0) Ur Specific [place] (1.003-1.030) Urine Protein (Negative) mg/dL Urine Glucose (UA) (Negative) mg/dL Urine Ketones (Negative) mg/dL Urine Blood (Negative) Urine Nitrite (Negative) Urine Bilirubin (Negative) Urine Urobilinogen (<2.0) mg/dL Ur Leukocyte Esterase (Negative) Urine WBC (Auto) (0.0-6.0) /HPF Urine RBC (Auto) (0.0-6.0) /HPF U Epithel Cells (Auto) (0-13.0) /HPF 08/02/18 Range/Units 20:45 WBC (4.5-11.0) K/mm3 RBC (3.65-5.03) M/mm3 Hgb (10.1-14.3) gm/dl Hct (30.3-42.9) % MCV (79-97) fl MCH (28-32) pg MCHC (30-34) % RDW (13.2-15.2) % Plt Count (140-440) K/mm3 Lymph % (Auto) (13.4-35.0) % [place] % (Auto) (0.0-7.3) % Eos % (Auto) (0.0-4.3) % Baso % (Auto) (0.0-1.8) % Lymph # (1.2-5.4) K/mm3 [place] # (0.0-0.8) K/mm3 Eos # (0.0-0.4) K/mm3 Baso # (0.0-0.1) K/mm3 Seg Neutrophils % (40.0-70.0) % Seg Neutrophils # (1.8-7.7) K/mm3 Sodium (137-145) mmol/L Potassium (3.6-5.0) mmol/L Chloride (98-107) mmol/L Carbon Dioxide (22-30) mmol/L Anion Gap mmol/L BUN (7-17) mg/dL Creatinine (0.7-1.2) mg/dL Estimated GFR ml/min BUN/Creatinine Ratio % Glucose (65-100) mg/dL Calcium (8.4-10.2) mg/dL Total Bilirubin (0.1-1.2) mg/dL AST (5-40) units/L ALT (7-56) units/L Alkaline Phosphatase (35-129) units/L Total Protein (6.3-8.2) g/dL Albumin (3.9-5) g/dL Albumin/Globulin Ratio % HCG, Qual (Negative) Urine Color Yellow (Yellow) Urine Turbidity Clear (Clear) Urine pH 5.0 (5.0-7.0) Ur Specific [place] 1.018 (1.003-1.030) Urine Protein <15 mg/dl (Negative) mg/dL Urine Glucose (UA) Neg (Negative) mg/dL Urine Ketones Neg (Negative) mg/dL Urine Blood Sm (Negative) Urine Nitrite Neg (Negative) Urine Bilirubin Neg (Negative) Urine Urobilinogen < 2.0 (<2.0) mg/dL Ur Leukocyte Esterase Neg (Negative) Urine WBC (Auto) 1.0 (0.0-6.0) /HPF Urine RBC (Auto) 4.0 (0.0-6.0) /HPF U Epithel Cells (Auto) 1.0 (0-13.0) /HPF - Radiology Data Radiology results: report reviewed PROCEDURE: XR ABDOMEN 2V TECHNIQUE: Abdominal series, including supine and upright AP views. HISTORY: left upper abdominal discomfort COMPARISONS: None . FINDINGS: Bowel gas pattern: Nonobstructive . Masses or calcifications: None . Bony structures: No significant abnormality . Pneumoperitoneum: None . Other: No significant findings . IMPRESSION: No acute abnormality. This document is electronically signed by Roselia Rehman DO., August 03 2018 12:25:38 AM ET Transcribed By: [facility] Dictated By: ROSELIA REHMAN MD Electronically Authenticated By: ROSELIA REHMAN MD Signed Date/Time: 08/03/18 0027 PROCEDURE: XR CHEST ROUTINE 2V TECHNIQUE: PA and lateral chest radiographs were obtained. HISTORY: cough COMPARISONS: None. FINDINGS: Heart: Normal. Mediastinum/Vessels: Normal. Lungs/Pleural space: Normal. Bony thorax: No acute osseous abnormality. IMPRESSION: Normal examination. This document is electronically signed by Alejandro Epps MD., August 02 2018 10:05:01 PM ET Transcribed By: [facility] [place] Dictated By: ALEJANDRO EPPS Electronically Authenticated By: ALEJANDRO EPPS Signed Date/Time: 08/02/18 2207 - Medical Decision Making Pt is a 32 yo female who presents to the ED with c/o left upper abd pain that began 2-3 days ago. She describes it as a cramping. She denies any N/V/D, urin dick sx, fever. she states she had a BM this morning. she denies having previously. PMHx of asthma. no allergies to meds. CXR with no acute process. abdominal XR no acute process. mild left upper abd tenderness to palpation, normal BS, no guarding/rebound. VSS. labs WNL. UA is normal. pt prescribed b entyl, gas-x, and pepcid. discussed to please take medication as prescribed. follow up with your primary care doctor in the next 2-3 days. return to the emergency room for any new or worsening symptoms. - Differential Diagnosis gastritis, GERD, constipation, SBO Critical care attestation.: If time is entered above; I have spent that time in minutes in the direct care of this critically ill patient, excluding procedure time. ED Disposition Clinical Impression: Abdominal pain Qualifiers: Abdominal location: left upper quadrant Qualified Code(s): R10.12 - Left upper quadrant pain Disposition: DC-01 TO HOME OR SELFCARE Is pt being admited?: No Does the pt Need Aspirin: No Condition: Stable Instructions: Abdominal Pain (ED) Additional Instructions: Please take medication as prescribed. follow up with your primary care doctor in the next 2-3 days. return to the emergency room for any new or worsening symptoms. Prescriptions: Dicyclomine [Bentyl] 10 mg PO QID PRN #14 capsule PRN Reason: Spasms Simethicone [Gas-X] 62.5 mg PO DAILY #1 strip Famotidine [Pepcid] 20 mg PO BID #60 tablet Referrals: GRIFFIN CRABTREE MD [Primary Care Provider] - 2-3 Days Forms: Accompanied Note, Work/School Release Form(ED) Time of Disposition: 01:19 Print Language: KINYARWANDA
--- NOTE | 2018-08-03 00:27 | XRay Report ---
PROCEDURE: XR ABDOMEN 2V TECHNIQUE: Abdominal series, including supine and upright AP views. HISTORY: left upper abdominal discomfort COMPARISONS: None . FINDINGS: Bowel gas pattern: Nonobstructive . Masses or calcifications: None . Bony structures: No significant abnormality . Pneumoperitoneum: None . Other: No significant findings . IMPRESSION: No acute abnormality. This document is electronically signed by Roselia Rehman DO., August 03 2018 12:25:38 AM ET
== END 2018-08-03 01:54 | disposition home or self-care (01) ==
LOC: ED 20:17
DX: R10.12 Left upper quadrant pain (principal); J45.909 Unspecified asthma, uncomplicated; F17.200 Nicotine dependence, unspecified, uncomplicated; F12.90 Cannabis use, unspecified, uncomplicated; Z98.51 Tubal ligation status; Z79.899 Other long term (current) drug therapy
CPT/HCPCS: 36415; 71046; 74019; 80053; 81001; 84703; 85025; 99283

== ENCOUNTER 2019-03-23 20:43 | Emergency (ER) | payer SELFPAY ==
--- NOTE | 2019-03-24 01:15 | Emergency Department Report ---
HPI - General Chief Complaint: Dental/Oral - HPI HPI: Room 29 The pt is a 33 y/o female p/w a cc of dental pain and earache. The pt states she's had pain from wisdom tooth eruption x 2 days. Pt c/o pain in the left lower mouth. Pt also c/o pain to bilateral ears. Pt also c/o drainage from both ears. ED Past Medical Hx - Past Medical History Previous Medical History?: Yes Hx Asthma: Yes Additional medical history: History of herpes, previous bacterial vaginosis, previous gonorrhea, & Chlamydia - Surgical History Past Surgical History?: Yes Additional Surgical History: tubal ligation - Family History Family history: no significant - Social History Smoking Status: Current Every Day Smoker (1/2 ppd) Substance Use Type: None - Medications Home Medications: Home Medications Medication Instructions Recorded Confirmed Last Taken Type Albuterol Sulfate [Ventolin HFA] 2 puff IH Q4H PRN #1 hfa.aer.ad 10/07/17 Unknown Rx Azithromycin [Zithromax Z-PRINCESS] 1 dose PO DAILY 5 Days tab 10/07/17 Unknown Rx Benzonatate [Tessalon Perles] 100 mg PO Q8HR PRN #30 capsule 10/07/17 Unknown Rx Guaifenesin/Pseudoephedrne HCl 1 each PO BID PRN #20 tab.er.12h 10/07/17 Unknown Rx [Mucinex D ER 1,200-120 mg Tab] Ibuprofen [Motrin 600 MG tab] 600 mg PO Q8H PRN #30 tablet 10/07/17 Unknown Rx predniSONE [Deltasone] 40 mg PO QDAY 5 Days tab 10/07/17 Unknown Rx Dicyclomine [Bentyl] 10 mg PO QID PRN #14 capsule 08/03/18 Unknown Rx Famotidine [Pepcid] 20 mg PO BID #60 tablet 08/03/18 Unknown Rx Simethicone [Gas-X] 62.5 mg PO DAILY #1 strip 08/03/18 Unknown Rx Amoxicillin [Amoxicillin TAB] 875 mg PO BID #14 tablet 03/24/19 Unknown Rx HYDROcodone/APAP 5-325 [[place] 1 - 2 each PO Q6HR PRN #10 tablet 03/24/19 Unknown Rx 5/325] Ibuprofen [Motrin 800 MG tab] 800 mg PO Q8HR PRN #20 tablet 03/24/19 Unknown Rx ED Review of Systems ROS: Stated complaint: TOOTH/EAR PAIN Other details as noted in HPI Constitutional: denies: fever ENT: ear pain, dental pain Physical Exam - Physical Exam Vital Signs: Vital Signs 03/23/19 20:51 Temperature 98.1 F Pulse Rate 75 Respiratory 12 Rate Blood Pressure 108/80 O2 Sat by Pulse 98 Oximetry Physical Exam: GEN: WD WN F sitting in chair in NAD HEENT: NCAT, EOMI TMs clear bilat. left lower wisdom tooth eruption. No gingival erythema appreciated NECK:Trachea midline, no stridor Pulm: no resp distress Neuro: GCS 15 SKIN: no diaphoresis ED Course Vital Signs 03/23/19 20:51 Temperature 98.1 F Pulse Rate 75 Respiratory 12 Rate Blood Pressure 108/80 O2 Sat by Pulse 98 Oximetry ED Medical Decision Making - Differential Diagnosis dental pain Critical care attestation.: If time is entered above; I have spent that time in minutes in the direct care of this critically ill patient, excluding procedure time. ED Disposition Clinical Impression: Pain, dental Disposition: TO HOME OR SELFCARE Is pt being admited?: No Does the pt Need Aspirin: No Condition: Stable Instructions: Toothache (ED) Prescriptions: Amoxicillin [Amoxicillin TAB] 875 mg PO BID #14 tablet Ibuprofen [Motrin 800 MG tab] 800 mg PO Q8HR PRN #20 tablet PRN Reason: Pain, Moderate (4-6) HYDROcodone/APAP 5-325 [[place] 5/325] 1 - 2 each PO Q6HR PRN #10 tablet PRN Reason: Pain Referrals: PRIMARY CARE,MD [Primary Care Provider] - 3-5 Days [facility] [Outside] - 3-5 Days Time of Disposition:
[2019-03-24 01:36] VITALS: BP 114/76
== END 2019-03-24 01:36 | disposition home or self-care (01) ==
LOC: ED 20:43
DX: K08.89 Other specified disorders of teeth and supporting structures (principal); F17.200 Nicotine dependence, unspecified, uncomplicated; J45.909 Unspecified asthma, uncomplicated; Z98.51 Tubal ligation status; Z79.2 Long term (current) use of antibiotics; Z79.1 Long term (current) use of non-steroidal anti-inflammatories (NSAID); Z79.899 Other long term (current) drug therapy
CPT/HCPCS: 99282

== ENCOUNTER 2019-04-28 17:43 | Emergency (ER) | payer SELFPAY ==
[2019-04-28 18:05] VITALS: BP 114/74
--- NOTE | 2019-04-28 18:11 | Emergency Department Report ---
Chief Complaint: Upper Respiratory Infection Stated Complaint: COUGHING Time Seen by Provider: 04/28/19 18:07 - HPI History of Present Illness: 33 y/o smoker was advised by her employer to come to ER to be tested for coronavirus before returning to work. Patient is asymptomatic with exception of a occasional cough which she relates to smoking. Ports no fevers, sweats, chills, hemoptysis, foreign travel, known positive sick contacts, malaise, muscle ache. - ROS Review of Systems: all systems negative except as per HPI - Exam Vital Signs: Vital Signs 04/28/19 18:02 Temperature 99.4 F Pulse Rate 87 Respiratory 20 Rate Blood Pressure 114/74 O2 Sat by Pulse 98 Oximetry Physical Exam: Vital signs stable General: Patient is well nourished, well developed, awake and alert, resting comfortably in no acute distress Head: Normocephalic and atraumatic Eyes: Normal inspection, extraocular muscles intact, no conjunctival pallor Ear, nose, throat: Normal external exam Neck: Normal range of motion Respiratory: Patient is in no respiratory distress, lungs CTAB Cardiovascular: Patient is not tachycardic, RRR without murmur appreciated GI: Abd SNT with no guarding or rebound; +BS normoactive x 4, no tympanny to percussion Back: Normal inspection of the back with good strength and range of motion throughout all ext Extremities: pulses intact with good cap refills, no LE pitting edema or calf tenderness Neuro: The patient is alert and oriented to person, place, and time, appropriately conversive, with 5/5 bilat UE/LE strength, no gross motor or sensory defects noted. Coordination appears to be adequate. Skin: Warm, dry, and intact MSE screening note: Focused history and physical exam performed. Due to findings the following was ordered: ED Disposition for MSE Clinical Impression: Cough Disposition: Z-07 MED SCREENING EXAM-LEFT Condition: Stable Instructions: Dextromethorphan (By mouth), Cold Symptoms (ED) Referrals: [facility] [Provider Group] - 3-5 Days Forms: Work/School Release Form(ED)
== END 2019-04-28 19:00 | disposition left against medical advice (07) ==
LOC: ED 17:43
DX: R05 Cough (principal)
CPT/HCPCS: 99281

== ENCOUNTER 2020-06-05 16:35 | Emergency (ER) | payer OTHER ==
[2020-06-05 16:43] VITALS: BP 112/64
--- NOTE | 2020-06-05 17:21 | Emergency Department Report ---
ED ENT HPI - General Chief complaint: Dental/Oral Stated complaint: TOOTH PAIN Time Seen by Provider: 06/05/20 17:16 Source: patient Mode of arrival: Ambulatory Limitations: No Limitations - History of Present Illness Initial comments: This is a 34-year-old female nontoxic, well nourished in appearance, no acute signs of distress presents to the ED with c/o of left upper toothache 3 weeks. Patient denies following up with a dentist. Patient describes toothache as aching level of 8 out of 10. Patient denies any facial swelling. Patient denies any numbness, tingling, fever, chills, headache, stiff neck, abdominal pain, chest pain, shortness of breath. Patient denies any drug allergies or significant past medical history. MD complaint: tooth pain -: week(s) Location: tooth # 1 - Pain here Quality: aching Consistency: constant Improves with: none Worsens with: none Context- Dental: history of dental caries, poor dental care Associated Symptoms: gum swelling, toothache. denies: fever, cough, pain with swallowing, sore throat, tinnitus, hearing loss, discharge from ear, rhinorrhea - Related Data Previous Rx's Medication Instructions Recorded Last Taken Type Albuterol Sulfate [Ventolin HFA] 2 puff IH Q4H PRN #1 hfa.aer.ad 10/07/17 Unknown Rx Azithromycin [Zithromax Z-PRINCESS] 1 dose PO DAILY 5 Days tab 10/07/17 Unknown Rx Benzonatate [Tessalon Perles] 100 mg PO Q8HR PRN #30 capsule 10/07/17 Unknown Rx Guaifenesin/Pseudoephedrne HCl 1 each PO BID PRN #20 tab.er.12h 10/07/17 Unknown Rx [Mucinex D ER 1,200-120 mg Tab] Ibuprofen [Motrin 600 MG tab] 600 mg PO Q8H PRN #30 tablet 10/07/17 Unknown Rx predniSONE [Deltasone] 40 mg PO QDAY 5 Days tab 10/07/17 Unknown Rx Dicyclomine [Bentyl] 10 mg PO QID PRN #14 capsule 06/20/19 Unknown Rx Famotidine [Pepcid] 20 mg PO BID #60 tablet 08/03/18 Unknown Rx Simethicone [Gas-X] 62.5 mg PO DAILY #1 strip 08/03/18 Unknown Rx Amoxicillin [Amoxicillin TAB] 875 mg PO BID #14 tablet 03/24/19 Unknown Rx HYDROcodone/APAP 5-325 [[place] 1 - 2 each PO Q6HR PRN #10 tablet 03/24/19 Unknown Rx 5/325] Ibuprofen [Motrin 800 MG tab] 800 mg PO Q8HR PRN #20 tablet 03/24/19 Unknown Rx Amoxicillin [Amoxicillin TAB] 875 mg PO BID #20 tablet 06/05/20 Unknown Rx Chlorhexidine Mouthwash [Peridex] 15 ml MM BID #1 bottle 06/05/20 Unknown Rx Naproxen 500 mg PO Q12H PRN #12 tablet 06/05/20 Unknown Rx Allergies Allergy/AdvReac Type Severity Reaction Status Date / Time No Known Allergies Allergy Verified 06/05/20 16:37 ED Dental HPI - General Chief complaint: Dental/Oral Stated complaint: TOOTH PAIN Time Seen by Provider: 06/05/20 17:16 Source: patient Mode of arrival: Ambulatory Limitations: No Limitations - Related Data Previous Rx's Medication Instructions Recorded Last Taken Type Albuterol Sulfate [Ventolin HFA] 2 puff IH Q4H PRN #1 hfa.aer.ad 10/07/17 Unknown Rx Azithromycin [Zithromax Z-PRINCESS] 1 dose PO DAILY 5 Days tab 10/07/17 Unknown Rx Benzonatate [Tessalon Perles] 100 mg PO Q8HR PRN #30 capsule 10/07/17 Unknown Rx Guaifenesin/Pseudoephedrne HCl 1 each PO BID PRN #20 tab.er.12h 10/07/17 Unknown Rx [Mucinex D ER 1,200-120 mg Tab] Ibuprofen [Motrin 600 MG tab] 600 mg PO Q8H PRN #30 tablet 10/07/17 Unknown Rx predniSONE [Deltasone] 40 mg PO QDAY 5 Days tab 10/07/17 Unknown Rx Dicyclomine [Bentyl] 10 mg PO QID PRN #14 capsule 08/03/18 Unknown Rx Famotidine [Pepcid] 20 mg PO BID #60 tablet 08/03/18 Unknown Rx Simethicone [Gas-X] 62.5 mg PO DAILY #1 strip 08/03/18 Unknown Rx Amoxicillin [Amoxicillin TAB] 875 mg PO BID #14 tablet 03/24/19 Unknown Rx HYDROcodone/APAP 5-325 [[place] 1 - 2 each PO Q6HR PRN #10 tablet 03/24/19 Unknown Rx 5/325] Ibuprofen [Motrin 800 MG tab] 800 mg PO Q8HR PRN #20 tablet 03/24/19 Unknown Rx Amoxicillin [Amoxicillin TAB] 875 mg PO BID #20 tablet 06/05/20 Unknown Rx Chlorhexidine Mouthwash [Peridex] 15 ml MM BID #1 bottle 06/05/20 Unknown Rx Naproxen 500 mg PO Q12H PRN #12 tablet 06/05/20 Unknown Rx Allergies Allergy/AdvReac Type Severity Reaction Status Date / Time No Known Allergies Allergy Verified 06/05/20 16:37 ED Review of Systems ROS: Stated complaint: TOOTH PAIN Other details as noted in HPI Constitutional: denies: chills, fever Eyes: denies: eye pain, eye discharge, vision change ENT: dental pain. denies: ear pain, throat pain Respiratory: denies: cough, shortness of breath, wheezing Cardiovascular: denies: chest pain, palpitations Endocrine: no symptoms reported Gastrointestinal: denies: abdominal pain, nausea, diarrhea Genitourinary: denies: urgency, dysuria, discharge Musculoskeletal: denies: back pain, joint swelling, arthralgia Skin: denies: rash, lesions Neurological: denies: headache, weakness, paresthesias Psychiatric: denies: anxiety, depression Hematological/Lymphatic: denies: easy bleeding, easy bruising ED Past Medical Hx - Past Medical History Hx Asthma: Yes Additional medical history: History of herpes, previous bacterial vaginosis, previous gonorrhea, & Chlamydia - Surgical History Additional Surgical History: tubal ligation - Social History Smoking Status: Current Every Day Smoker Substance Use Type: None - Medications Home Medications: Home Medications Medication Instructions Recorded Confirmed Last Taken Type Albuterol Sulfate [Ventolin HFA] 2 puff IH Q4H PRN #1 hfa.aer.ad 10/07/17 Unknown Rx Azithromycin [Zithromax Z-PRINCESS] 1 dose PO DAILY 5 Days tab 10/07/17 Unknown Rx Benzonatate [Tessalon Perles] 100 mg PO Q8HR PRN #30 capsule 10/07/17 Unknown Rx Guaifenesin/Pseudoephedrne HCl 1 each PO BID PRN #20 tab.er.12h 10/07/17 Unknown Rx [Mucinex D ER 1,200-120 mg Tab] Ibuprofen [Motrin 600 MG tab] 600 mg PO Q8H PRN #30 tablet 10/07/17 Unknown Rx predniSONE [Deltasone] 40 mg PO QDAY 5 Days tab 10/07/17 Unknown Rx Dicyclomine [Bentyl] 10 mg PO QID PRN #14 capsule 08/03/18 Unknown Rx Famotidine [Pepcid] 20 mg PO BID #60 tablet 08/03/18 Unknown Rx Simethicone [Gas-X] 62.5 mg PO DAILY #1 strip 08/03/18 Unknown Rx Amoxicillin [Amoxicillin TAB] 875 mg PO BID #14 tablet 03/24/19 Unknown Rx HYDROcodone/APAP 5-325 [[place] 1 - 2 each PO Q6HR PRN #10 tablet 03/24/19 Un known Rx 5/325] Ibuprofen [Motrin 800 MG tab] 800 mg PO Q8HR PRN #20 tablet 03/24/19 Unknown Rx Amoxicillin [Amoxicillin TAB] 875 mg PO BID #20 tablet 06/05/20 Unknown Rx Chlorhexidine Mouthwash [Peridex] 15 ml MM BID #1 bottle 06/05/20 Unknown Rx Naproxen 500 mg PO Q12H PRN #12 tablet 06/05/20 Unknown Rx ED Physical Exam - General Limitations: No Limitations General appearance: alert, in no apparent distress - Head Head exam: Present: atraumatic, normocephalic - Eye Eye exam: Present: normal appearance - Expanded ENT Exam Expanded Ear exam: Present: normal external inspection Mouth exam: Present: normal external inspection, tongue normal. Absent: drooling, trismus, muffled voice Teeth exam: Present: dental caries, fractured tooth #, dental tenderness #, gingival enlargement, other (uvula midline) Throat exam: Positive: normal inspection, other (No tonsillar abscess. Uvula midline.). Negative: tonsillar erythema, tonsillomegaly, tonsillar exudate, R peritonsillar mass, L peritonsillar mass - Neck Neck exam: Present: normal inspection, full ROM. Absent: tenderness, meningismus, lymphadenopathy - Respiratory Respiratory exam: Absent: respiratory distress - Cardiovascular Cardiovascular Exam: Present: regular rate - Extremities Exam Extremities exam: Present: full ROM - Back Exam Back exam: Present: full ROM - Neurological Exam Neurological exam: Present: alert, oriented X3, normal gait - Psychiatric Psychiatric exam: Present: normal affect, normal mood - Skin Skin exam: Present: warm, dry, intact, normal color. Absent: rash ED Course Vital Signs 06/05/20 16:42 Temperature 99.2 F Pulse Rate 74 Respiratory 18 Rate Blood Pressure 112/64 O2 Sat by Pulse 97 Oximetry - Reevaluation(s) Reevaluation #1: 06/05/20 17:21 Patient is speaking in full sentences with no signs of distress noted. ED Medical Decision Making - Medical Decision Making This is a 34-year-old female that presents with gingivitis and dental caries. Patient is stable and was examined by me. There is no abscess upon exam. Neuro exam unremarkable. Patient is discharged with Peridex and amox. At time of discharge, the patient does not seem toxic or ill in appearance. No acute signs of distress noted. Patient agrees to discharge treatment plan of care. No further questions noted by the patient. Critical care attestation.: If time is entered above; I have spent that time in minutes in the direct care of this critically ill patient, excluding procedure time. ED Disposition Clinical Impression: Dental caries, Gingivitis Disposition: - TO HOME OR SELFCARE Is pt being admited?: No Does the pt Need Aspirin: No Condition: Stable Additional Instructions: Follow-up with a dentist doctor in 3-5 days or if symptoms worsen and continue return to emergency room as soon as possible. Prescriptions: Amoxicillin [Amoxicillin TAB] 875 mg PO BID #20 tablet Naproxen 500 mg PO Q12H PRN #12 tablet PRN Reason: Pain , Severe (7-10) Chlorhexidine Mouthwash [Peridex] 15 ml MM BID #1 bottle Referrals: [facility]IMARY [facility] [Referring] - 3-5 Days VIKY MANN MD [Staff Physician] - 3-[address] [facility] [Outside] - 3-5 Days Forms: Work/School Release Form(ED) Time of Disposition: 17:23
== END 2020-06-05 18:06 | disposition home or self-care (01) ==
LOC: ED 16:35
DX: K02.9 Dental caries, unspecified (principal); K05.10 Chronic gingivitis, plaque induced; J45.909 Unspecified asthma, uncomplicated; F17.200 Nicotine dependence, unspecified, uncomplicated; Z79.899 Other long term (current) drug therapy
CPT/HCPCS: 99282

== ENCOUNTER 2020-08-02 10:32 | Emergency (ER) | payer SELFPAY ==
[2020-08-02 13:10] VITALS: BP 104/65
--- NOTE | 2020-08-02 13:16 | Emergency Department Report ---
ED General Adult HPI - General Chief complaint: Dental/Oral Stated complaint: DENTAL PAIN Time Seen by Provider: 08/02/20 13:01 Source: patient Mode of arrival: Ambulatory Limitations: No Limitations - History of Present Illness Initial comments: 34-year-old female patient presents to the emergency department with complaints of dental pain for 2 days. Patient states when she woke up this morning, a piece of her left upper molar had broken off. Her daughter reportedly tells her that she grinds her teeth at nighttime. Patient does not currently under the care of a dentist. No current antibiotic use. Denies fever, chills, sore throat, dysphagia, hoarseness, neck stiffness, purulent drainage. Denies all other complaints at this time. - Related Data Previous Rx's Medication Instructions Recorded Last Taken Type Albuterol Sulfate [Ventolin HFA] 2 puff IH Q4H PRN #1 hfa.aer.ad 10/07/17 Unknown Rx Azithromycin [Zithromax Z-PRINCESS] 1 dose PO DAILY 5 Days tab 10/07/17 Unknown Rx Benzonatate [Tessalon Perles] 100 mg PO Q8HR PRN #30 capsule 10/07/17 Unknown Rx Guaifenesin/Pseudoephedrne HCl 1 each PO BID PRN #20 tab.er.12h 10/07/17 Unknown Rx [Mucinex D ER 1,200-120 mg Tab] Ibuprofen [Motrin 600 MG tab] 600 mg PO Q8H PRN #30 tablet 10/07/17 Unknown Rx predniSONE [Deltasone] 40 mg PO QDAY 5 Days tab 10/07/17 Unknown Rx Dicyclomine [Bentyl] 10 mg PO QID PRN #14 capsule 08/03/18 Unknown Rx Famotidine [Pepcid] 20 mg PO BID #60 tablet 08/03/18 Unknown Rx Simethicone [Gas-X] 62.5 mg PO DAILY #1 strip 08/03/18 Unknown Rx Amoxicillin [Amoxicillin TAB] 875 mg PO BID #14 tablet 03/24/19 Unknown Rx HYDROcodone/APAP 5-325 [[place] 1 - 2 each PO Q6HR PRN #10 tablet 03/24/19 Unknown Rx 5/325] Ibuprofen [Motrin 800 MG tab] 800 mg PO Q8HR PRN #20 tablet 03/24/19 Unknown Rx Amoxicillin [Amoxicillin TAB] 875 mg PO BID #20 tablet 06/05/20 Unknown Rx Chlorhexidine Mouthwash [Peridex] 15 ml MM BID #1 bottle 06/05/20 Unknown Rx Naproxen 500 mg PO Q12H PRN #12 tablet 06/05/20 Unknown Rx Naproxen 500 mg PO BID #20 tablet 08/02/20 Unknown Rx Nystas/Diphen/Xyl Visc/Mylanta 30 ml MM Q4H PRN #1 bottle 08/02/20 Unknown Rx [Magic Mouthwash] Penicillin Vk [Veetids TAB] 500 mg PO QID 7 Days tablet 08/02/20 Unknown Rx Allergies Allergy/AdvReac Type Severity Reaction Status Date / Time No Known Allergies Allergy Verified 06/05/20 16:37 ED Review of Systems ROS: Stated complaint: DENTAL PAIN Other details as noted in HPI Other: GENERAL: Negative for fever. ENT: Positive for dental pain. CARDIOVASCULAR: Negative for chest pain. PULMONARY: Negative for shortness of breath. GASTROINTESTINAL: Negative for abdominal pain. MUSCULOSKELETAL: Negative for back pain. NEUROLOGICAL: Negative for headache. INTEGUMENTARY: Negative for rash. ED Past Medical Hx - Past Medical History Previous Medical History?: Yes Hx Asthma: Yes Additional medical history: History of herpes, previous bacterial vaginosis, previous gonorrhea, & Chlamydia - Surgical History Past Surgical History?: Yes Additional Surgical History: tubal ligation - Social History Smoking Status: Current Every Day Smoker Substance Use Type: Alcohol - Medications Home Medications: Home Medications Medication Instructions Recorded Confirmed Last Taken Type Albuterol Sulfate [Ventolin HFA] 2 puff IH Q4H PRN #1 hfa.aer.ad 10/07/17 Unknown Rx Azithromycin [Zithromax Z-PRINCESS] 1 dose PO DAILY 5 Days tab 10/07/17 Unknown Rx Benzonatate [Tessalon Perles] 100 mg PO Q8HR PRN #30 capsule 10/07/17 Unknown Rx Guaifenesin/Pseudoephedrne HCl 1 each PO BID PRN #20 tab.er.12h 10/07/17 Unknown Rx [Mucinex D ER 1,200-120 mg Tab] Ibuprofen [Motrin 600 MG tab] 600 mg PO Q8H PRN #30 tablet 10/07/17 Unknown Rx predniSONE [Deltasone] 40 mg PO QDAY 5 Days tab 10/07/17 Unknown Rx Dicyclomine [Bentyl] 10 mg PO QID PRN #14 capsule 08/03/18 Unknown Rx Famotidine [Pepcid] 20 mg PO BID #60 tablet 08/03/18 Unknown Rx Simethicone [Gas-X] 62.5 mg PO DAILY #1 strip 08/03/18 Unknown Rx Amoxicillin [Amoxicillin TAB] 875 mg PO BID #14 tablet 03/24/19 Unknown Rx HYDROcodone/APAP 5-325 [[place] 1 - 2 each PO Q6HR PRN #10 tablet 03/24/19 Unknown Rx 5/325] Ibuprofen [Motrin 800 MG tab] 800 mg PO Q8HR PRN #20 tablet 03/24/19 Unknown Rx Amoxicillin [Amoxicillin TAB] 875 mg PO BID #20 tablet 06/05/20 Unknown Rx Chlorhexidine Mouthwash [Peridex] 15 ml MM BID #1 bottle 06/05/20 Unknown Rx Naproxen 500 mg PO Q12H PRN #12 tablet 06/05/20 Unknown Rx Naproxen 500 mg PO BID #20 tablet 08/02/20 Unknown Rx Nystas/Diphen/Xyl Visc/Mylanta 30 ml MM Q4H PRN #1 bottle 08/02/20 Unknown Rx [Magic Mouthwash] Penicillin Vk [Veetids TAB] 500 mg PO QID 7 Days tablet 08/02/20 Unknown Rx ED Physical Exam - General Limitations: No Limitations - Other Other exam information: General: Awake, appropriately interactive, no acute distress. ENT: Oral mucosa is moist. The gingiva appear normal. Tenderness to palpation along the left upper molar with dental avulsion noted. No fluctuance or evidence of periapical abscess. Sublingual, submental, and submandibular spaces all soft, without edema. No evidence for maxillary or buccal space abscess. No trismus. Patient is speaking in full sentences and handling secretions without difficulty. Neck: Supple. Full range of motion intact. Cardiovascular: Normal peripheral perfusion. Pulmonary: No respiratory distress. Patient is speaking normally without use of accessory muscles. Skin: No apparent rashes or lesions. Neurological: No facial asymmetry. Speech is clear. Follows commands. Patient is alert and oriented. Musculoskeletal: Moves all four extremities spontaneously with normal range of motion. Psych: Cooperative. Appropriate mood and affect. ED Course Vital Signs 08/02/20 12:52 Temperature 98.2 F Pulse Rate 75 Respiratory 16 Rate Blood Pressure 104/65 O2 Sat by Pulse 99 Oximetry ED Medical Decision Making - Medical Decision Making Differential diagnosis including but not limited to: dental abscess, Marquis's angina, necrotizing gingivitis, dental caries Patient presents to the emergency department with complaints of pain to her left upper molar starting 2 days ago. She is afebrile. Vital signs are stable. No hypoxia, no respiratory distress. No voice changes, no trismus. Swallowing and handling secretions without difficulty. No clinical evidence to suggest airway obstruction or systemic bacterial infection warranting further diagnostic work- up on an emergent basis. Patient will be discharged home with antibiotics, appropriate analgesics, and referral to local dentist for close outpatient follow-up. Patient expressed understanding and is agreeable to plan of care. Strict return precautions provided. History, exam, diagnostic testing, and current condition do not suggest worrisome pathology to warrant further testing, continued ED treatment, admission, or surgical evaluation at this point. Given the low probability of a significant medical illness, it would be more likely to result in harm than benefit to perform further testing at this stage. Discussed findings, presumptive diagnosis, need for follow-up and specific signs/symptoms that should prompt immediate return to the emergency department. Instructions were explained in detail to the patient in addition to giving written discharge information. Patient expressed understanding and was given the opportunity to ask questions, all of which were satisfactorily answered prior to discharge home. Critical care attestation.: If time is entered above; I have spent that time in minutes in the direct care of this critically ill patient, excluding procedure time. ED Disposition Clinical Impression: Broken tooth Qualifiers: Encounter type: initial encounter Fracture type: closed Qualified Code(s): S02.5XXA - Fracture of tooth (traumatic), initial encounter for closed fracture Disposition: DC- TO HOME OR SELFCARE Is pt being admited?: No Does the pt Need Aspirin: No Condition: Stable Instructions: Diet and Dental Disease Additional Instructions: Take Tylenol every 4 hours as needed for pain. Take Naprosyn twice daily with food as needed for pain. Use Magic Mouthwash as directed for pain. Take Penicillin as directed. Use dental wax as needed. Avoid extremely hot/extremely cold foods and fluids which may worsen pain. You must follow-up with a dentist this week. Call Tuesday to schedule an appointment. See referral information below. Return to the emergency department immediately for new or worsening symptoms. Prescriptions: Nystas/Diphen/Xyl Visc/Mylanta [Magic Mouthwash] 30 ml MM Q4H PRN #1 bottle PRN Reason: Dental Pain Naproxen 500 mg PO BID #20 tablet Penicillin Vk [Veetids TAB] 500 mg PO QID 7 Days tablet Referrals: [facility] [Outside] - 3-5 Days [facility] [Outside] - 3-5 Days Forms: Work/School Release Form(ED) Time of Disposition: 13:16
== END 2020-08-02 13:51 | disposition home or self-care (01) ==
LOC: ED 10:32
DX: S02.5XXA Fracture of tooth (traumatic), initial encounter for closed fracture (principal); F17.200 Nicotine dependence, unspecified, uncomplicated; J45.909 Unspecified asthma, uncomplicated; Z79.899 Other long term (current) drug therapy; Z98.51 Tubal ligation status; X58.XXXA Exposure to other specified factors, initial encounter; Y93.89 Activity, other specified; Y92.89 Other specified places as the place of occurrence of the external cause; Y99.8 Other external cause status
CPT/HCPCS: 99282